=== PATIENT | male | born 1980 | race Caucasian/White ===

== ENCOUNTER 2022-03-03 12:14 | Emergency (ER) | payer BC, SELFPAY ==
[2022-03-03 12:31] VITALS: BP 140/87; PULSE 83; RESP 16; TEMP 36.1; O2SAT 100
--- NOTE | 2022-03-03 12:48 | ED.GENADULT ---
HPI - General Adult General Chief complaint: Upper Respiratory Infection Stated complaint: vomitting, congestion,cough Source: patient Mode of arrival: ambulatory Limitations: no limitations History of Present Illness HPI narrative: Patient presents for evaluation of sick symptoms. Symptom onset two days ago. He has some sinus congestion, postnasal drainage, fatigue and body aches. He had one episode of vomiting earlier today but attributed to postnasal drainage. He denies any nausea otherwise. He has experienced some chills but denies fever or diarrhea. He also reports an occasional cough. He took some delsym earlier for his symptoms. His has been sick on and off and he believes they have been passing something back and forth for awhile. He has not had COVID vaccinations or a flu shot. He does not smoke. He took a home COVID test earlier today which was negative. Related Data Home Medications Medication Instructions Recorded Confirmed No Home Medications 03/03/22 03/03/22 Allergies Allergy/AdvReac Type Severity Reaction Status Date / Time No Known Allergies Allergy Unverified 10/11/11 16:15 Review of Systems Review of Systems: CONSTITUTIONAL: Reports fatigue. Denies fever, chills, or sweats. EYES: Denies visual changes, redness, or discharge. ENT: Reports sinus congestion, postnasal drainage, and pruritus in the right ear CARDIOVASCULAR: Denies chest pain, palpitations, or edema. RESPIRATORY: reports occasional cough. Deniesdyspnea. GASTROINTESTINAL: Reports one episode of vomiting earlier. Denies abdominal pain, nausea, or diarrhea. GENITOURINARY: Denies dysuria or hematuria. SKIN: Denies rash or itching. MUSCULOSKELETAL: Reports generalized body aches NEUROLOGIC: Denies headache, numbness, dizziness, or weakness. PSYCHIATRIC: Denies anxiety or depression. [facility] Past Medical History Medical History (Updated 03/03/22 @ 13:11 by SURINDER Mireles, ADAIR) No pertinent past medical history Surgical History Surgical History History of surgery on wrist Family History Family History Mother Family history non-contributory Social History Social History Smoking status: Never smoker Substance use: never Living arrangements: with family Gender identity (if verbalized by the patient): Male Sexual Orientation (if Verbalized by the Patient): Straight or Heterosexual Spiritual care concerns: No Exam Narrative: GENERAL: Well-appearing, well-nourished, and in no acute distress. HEAD: Normocephalic, atraumatic. EYES: PERRLA and EOMI. ENT: Nares clear, no rhinorrhea or epistaxis. Mucous membranes moist. Oropharynx without tonsillar hypertrophy exudate or other lesions. Bilateral TMs pearly vargas nonbulging NECK: Supple. No adenopathy or masses. No carotid bruits or JVD CHEST: Clear to auscultation. No respiratory distress. No wheezes rales or rhonchi HEART: Regular rate and rhythm. No murmur heard. Normal peripheral pulses. ABDOMEN: Soft, nontender, nondistended, normal active bowel sounds. EXTREMITIES: Normal range of motion. No edema. SKIN: Warm, dry, no rash. NEURO: No focal deficits. Alert and oriented x3. PSYCH: Normal mood and affect. Course Course Emergency Course: This is a 41-year-old male who presented for evaluation of sick symptoms. He took a home COVID test which was negative. Influenza was negative here. He does not have a sore throat warranting strep testing. Sudafed and Flonase may help. Increase hydration. [id number] agents for symptom management. Follow up with primary. Go to the ER for worsening symptoms. Patient in agreement plan of care Level of Care: Express Care Visit Vital Signs Vital signs: Vital Signs Temperature 36.1 C L 03/03/22 12:31 Pulse Ra
== END 2022-03-03 13:16 | disposition home or self-care (01) ==
PROVIDERS: Emergency Provider Nurse Practitioner
DX: J06.9 Acute upper respiratory infection, unspecified (principal)
CPT/HCPCS: 87804; 99213; G0463

== ENCOUNTER 2023-03-19 19:01 | Emergency (ER) | payer BC, SELFPAY ==
--- NOTE | ~2023-03-19 | CT_ITS ---
EXAMINATION: CT brain wo con DATE: 03/19/2023 20:22 INDICATION: Head injury. TECHNIQUE: Computed tomography (CT) of the head was performed without intravenous contrast. The mA wa s adjusted according to patient size. Iterative reconstruction technique was employed. The dose-lengt h product was 605.33 mGy-cm. COMPARISON: None FINDINGS: There is no intracranial hemorrhage, acute infarction, or abnormal intracranial mass lesion . The ventricles are normal in size. The orbits are normal. There is mild mucosal thickening in the e thmoid sinuses. There is cerumen in the external auditory canals. IMPRESSION: 1. Normal brain. Reviewed, dictated and finalized at location E. TABOUT IMPRESSION: 1. Normal brain.
--- NOTE | ~2023-03-19 | CT_ITS ---
EXAMINATION: CT facial & cervical spine wo DATE: 03/19/2023 20:22 INDICATION: Head injury. TECHNIQUE: Computed tomography (CT) of the maxillofacial region and cervical spine was performed with out intravenous contrast. Automated exposure control and iterative reconstruction technique were empl oyed. The dose-length product was 312.55 mGy-cm. COMPARISON: None FINDINGS: MAXILLOFACIAL CT: There is a laceration of the nose. There is soft tissue gas around the right masseter muscle. There i s mucosal thickening in the paranasal sinuses. There are fractures of the nasal bones. CERVICAL SPINE CT: There is mild scarring at the lung apices. Bone alignment is normal. Vertebral body heights and inter vertebral disc heights are normal. There is multilevel mild facet joint osteoarthritis. On the left, there is severe facet joint osteoarthritis at C2-C3. There is mild neural foraminal stenosis on the l eft at C2-C3. No central canal stenosis. IMPRESSION: 1. Fractures of the nasal bones. 2. Mild cervical spondylosis. Reviewed, dictated and finalized at location E. [employer]
[2023-03-19 19:29] VITALS: BP 128/85; PULSE 80; RESP 16; TEMP 36.6; O2SAT 99
--- NOTE | 2023-03-19 20:01 | ED.WOUNDLAC ---
HPI - Wound/Laceration General Chief Complaint: Wound/Laceration Stated Complaint: nose laceration Time Seen by Provider: 03/19/23 19:36 Source: patient Mode of arrival: ambulatory Limitations: no limitations History of Present Illness HPI narrative: Patient is a 42 y/o male who presents to the ED with c/o nasal injury. Patient reports he was running this evening when he tripped on an uneven sidewalk and fell forward, hitting his face on the ground. He sustained a laceration to his nasal bridge, which he believes is from his eye glasses. He did have epistaxis on scene which has since resolved. He denies LOC, but states he does not entirely know how the fall occurred. Denied feeling dizzy or lightheaded prior to the fall. Denies dizziness or lightheadedness currently. Denies any other injuries. Denies neck or back pain. Denies vision changes. Denies dental pain or issues. Tetanus status unknown. Patient took ibuprofen prior to arrival. Pain is controlled at this time. Related Data Allergies Allergy/AdvReac Type Severity Reaction Status Date / Time No Known Allergies Allergy Unverified 10/11/11 16:15 Review of Systems Review of Systems: CONSTITUTIONAL: Denies fever, chills, or sweats. ENT: See HPI. MUSCULOSKELETAL: Denies back pain, extremity pain, myalgia. NEUROLOGIC: See HPI. All systems reviewed & are unremarkable except as noted in HPI and below PMFSH Past Medical History Medical History No pertinent past medical history Surgical History Surgical History History of surgery on wrist Family History Family History Mother Family history non-contributory Social History Social History Smoking status: Never smoker Substance use: never Living arrangements: with family Gender identity (if verbalized by the patient): Male Sexual Orientation (if Verbalized by the Patient): Straight or Heterosexual Spiritual care concerns: No Exam Narrative: GENERAL: Well appearing, well-nourished, non-toxic, in no acute distress. HEAD: Normocephalic. Contusion to forehead, small overlying abrasion. ENT: Swelling and mild ecchymosis to nose. Skin abrasion to lower nose/tip of nose. Dime-sized skin avulsion to mid and left sided bridge of nose. Minimal active bleeding. Small portion of superior nasal bone is visible through skin avulsion. No significant crepitus. Dried blood around bilateral nares. No septal hematoma. No malocclusion or trismus. EYES: PERRL/EOMI conjunctiva clear. NECK: No midline spinal tenderness to palpation. RESPIRATORY: Airway patent, respirations nonlabored. CARDIOVASCULAR: Regular rate and rhythm. MUSCULOSKELETAL: Moves all extremities. No gross deformities. SKIN: Warm, dry, normal color. NEURO: A&O X3. Speech clear. Cranial nerves II-XII grossly intact. No ataxic movements. PSYCHIATRIC: Appropriate mood and affect. Normal interaction. Course Vital Signs Vital signs: Vital Signs Temperature 98 F 03/19/23 19:29 Pulse Rate 80 03/19/23 19:29 Respiratory Rate 16 03/19/23 19:29 Blood Pressure 128/85 03/19/23 19:29 Pulse Oximetry 99 03/19/23 19:29 Oxygen Delivery Room Air 03/19/23 19:29 Temperature 98 F 03/19/23 19:29 Pulse Rate 80 03/19/23 19:29 Respiratory Rate 16 03/19/23 19:29 Blood Pressure 128/85 03/19/23 19:29 Pulse Oximetry 99 03/19/23 19:29 Oxygen Delivery Room Air 03/19/23 19:29 Procedures Laceration Laceration 1: Date: 03/19/23 Time: 23:00 Site: face Size (cm): 0.25 Description: irregular Depth: simple, single layer Local Anesthetic: lidocaine 1% Amount of anesthesia used (mL): 3 Pre-repair: wound explored, irrigated and irr
[2023-03-19] MEDS: ceFAZolin SODIUM 1 GM VIAL IM (23:09)
[2023-03-19] MEDS: TETANUS,DIPHTHERIA,AC PERTUSSIS ADULT (0.5 ML) BOOSTRIX IM (23:12)
== END 2023-03-20 00:09 | disposition home or self-care (01) ==
PROVIDERS: Emergency Provider Physician Assistant
DX: S02.2XXB Fracture of nasal bones, initial encounter for open fracture (principal); Z23 Encounter for immunization; M47.812 Spondylosis without myelopathy or radiculopathy, cervical region; W01.0XXA Fall on same level from slipping, tripping and stumbling without subsequent striking against object, initial encounter
CPT/HCPCS: 12011; 70450; 70486; 72125; 90471; 90715; 96372; 99284; J0690